=== PATIENT | female | born 1955 | race Two or more races ===

== ENCOUNTER 2022-02-05 06:20 | Day surgery (SDC) | payer OTHER ==
[~2022-02-05] VITALS: Ht 160 cm; Wt 67.6 kg
[~2022-02-05 06:20] MED LIST: PRAVASTATIN SOD20 MG; TOPAMAX; TOPAMAX25 MG
== END 2022-02-05 16:25 | disposition home or self-care (01) ==
LOC: CIR.AMB 06:20
PROVIDERS: ATTEND Specialist
DX: E65 Localized adiposity (principal); E88.1 Lipodystrophy, not elsewhere classified; L98.7 Excessive and redundant skin and subcutaneous tissue; Z20.822 Contact with and (suspected) exposure to COVID-19; E78.5 Hyperlipidemia, unspecified

== ENCOUNTER 2022-02-05 06:55 | Outpatient (CLI) | payer OTHER | END 2022-02-05 06:56 | disposition home or self-care (01) | LOC: LAB 06:55 | PROVIDERS: ATTEND Specialist | DX: E87.6 Hypokalemia (principal) ==

== ENCOUNTER → 2022-05-21 | Outpatient (CLI) | payer OTHER | END | disposition home or self-care (01) | LOC: SONOGRAMA 08:11 | PROVIDERS: ATTEND Pathology Anatomic Pathology & Clinical Pathology | DX: E04.2 Nontoxic multinodular goiter (principal) ==